=== PATIENT | female | born 1995 | race Caucasian/White ===

== ENCOUNTER 2020-02-08 09:51 | Outpatient (CLI) | payer BC ==
--- NOTE | 2020-02-08 10:52 | MRI ---
EXAM: MRI Lumbar Spine WO Con PROVIDED CLINICAL HISTORY: Intervertebral disc displacement COMPARISON: None FINDINGS: 5 lumbar vertebral bodies are assumed. Lumbar alignment appears normal. Vertebral body heights appear preserved. Intervertebral disc space heights appear preserved. No focal concerning regional marrow signal abnormality is evident. The visualized extraspinal soft tissues appear unremarkable. At L1-2, there is no significant central canal or foraminal narrowing apparent. At L2-3, there is no significant central canal or foraminal narrowing apparent. At L3-4, there is no significant central canal or foraminal narrowing apparent. At L4-5, there is no significant central canal or foraminal narrowing apparent. At L5-S1, there is a broad-based disc bulge with a superimposed large central disc herniation. This m easures at least 1.7 x 1 cm in greatest transverse dimensions and about 1.7 cm in craniocaudal dimension. No evidence for sequestration. There is severe attenuation of the central canal particular ly left of midline with potential for impingement on the traversing left-sided nerve roots in particular. IMPRESSION: Large disc herniation at L5-S1 as described.
== END 2020-02-08 09:52 | disposition home or self-care (01) ==
LOC: BICMRI 09:51
PROVIDERS: ATTEND Chiropractor
DX: M51.26 Other intervertebral disc displacement, lumbar region (principal); M51.27 Other intervertebral disc displacement, lumbosacral region
CPT/HCPCS: 72148